=== PATIENT | female | born 1950 | race Caucasian/White ===

== ENCOUNTER → 2017-11-25 | Day surgery (SDC) | payer OTHER ==
[2017-11-14 10:07] LABS: BASO % 1.2 %; BASO ABS # 0.04 K/uL (0-0.2); EOS % 2.4 %; EOS ABS # 0.08 K/uL (0-0.5); HEMATOCRIT 37.6 % (37-47); HEMOGLOBIN 12.4 g/dL (12.0-16.0); LYMPH ABS # 1.42 K/uL (1.2-3.4); MEAN CELL VOLUME 89.7 fL (80-100); MEAN CORPUSCULAR HEMOGLOBIN 29.6 pg (25-34); MEAN PLATELET VOLUME 9.7 fL (7.4-10.4); MONO % 10.4 %; MONO ABS # 0.35 K/uL (0.11-0.59); NEUT ABS # 1.49 K/uL (1.4-6.5); PLATELET COUNT 299 K/uL (130-400); RED CELL DISTRIBUTION WIDTH CV 13.1 % (11.5-14.5); WHITE BLOOD COUNT 3.38 K/uL (4.8-10.8)
[2017-11-14 10:19] LABS: PTT PATIENT 26.5 SECONDS (21.0-31.0)
[2017-11-14 10:34] LABS: BLOOD UREA NITROGEN 15 mg/dl (7-18); CALCIUM 8.9 mg/dl (8.5-10.1); CARBON DIOXIDE 27 mmol/L (21-32); CREATININE 0.71 mg/dl (0.60-1.20); GLUCOSE 98 mg/dl (70-99); POTASSIUM 3.7 mmol/L (3.5-5.1); SODIUM 140 mmol/L (136-145)
[~2017-11-25] VITALS: Ht 149.9 cm; Wt 75.0 kg
[~2017-11-25] MED LIST: ACETAMINOPHEN 325 MG TAB PO PRN; ASPEC325 PO; ATROPINE SULFATE 0.1 MG/ML 5ML SYR IV PRN; CLC100 PO; CLINDAMYCIN PHOS 150 MG/ML 2 ML VIAL IV SCH; CLORAZEPATE PO; EFFSR75 PO; ERYTHROMYCIN OP OINT 5 MG/GM 3.5 GM TUBE ONE; EpHEDrine SULFATE INJ 50 MG/ML AMP IV PRN; FENTANYL CITRATE INJ 50 MCG/1 ML 2 ML VIAL IV PRN; FENTANYL CITRATE INJ 50 MCG/1 ML 2 ML VIAL ONE; GENTIAN VIOLET TOP SOLN DROP CHARGE ONE; LACTATED RINGER'S 1000ML 1,000 ML IV SCH; LIDOCAINE HCL 2% 2 ML VIAL (20MG/ML) ONE; LIDOCAINE/EPINEPHRINE 1% 20 ML VIAL ONE; LSN/10125 PO; METOCLOPRAMIDE HCL INJ 5 MG/ML 2 ML VIAL IV PRN; MIDAZOLAM HCL 1 MG/ML 2ML VIAL ONE; MIRT15TA2 PO; MULT-580 PO; OMEP20CA9 PO; ONDANSETRON INJ 2 MG/ML 2 ML VIAL IV PRN; OXYC-57 PO; OXYCODONE/ACETAMINOPHEN 5-325 TAB PO PRN; OXYSR10 PO; PHENYLEPHRINE 100MCG/ML 5ML SYR IV PRN; POTA-639 PO; POVIDONE-IODINE OP SOLN 30 ML BTL ONE; PROMETHAZINE HCL INJ 12.5 MG in SODIUM CHLORIDE 0.9% 50ML 50 ML IV PRN; PROPOFOL IV EMULSION 10 MG/ML 20 ML VIAL ONE; ROSU5TAB PO; SODIUM CHLORIDE 0.9% 1000ML 1,000 ML IV SCH; VANCOMYCIN CONSULT ACTIVE PRN; VANCOMYCIN HCL 1000MG/20ML VIAL ONE; VANCOMYCIN IV 500 MG in SODIUM CHLORIDE 0.9% 250ML 250 ML IV STA; WATER, STERILE FOR INJ 10 ML VIAL ONE
[2017-11-25 07:38] VITALS: Ht 149.9 cm; Wt 75.0 kg
--- NOTE | 2017-11-25 08:11 | History & Physical Bridge - [place] ---
H&P Re-Evaluation Bridge Note: I have examined the patient, reviewed the History & Physical and in the interval since the performance of the History & Physical I have noted the following changes of clinical significance: No changes noted
--- NOTE | 2017-11-25 10:32 | [facility] Post Operative Brief Note ---
Immediate Operative Summary Operative Date November 25, 2017. Pre-Operative Diagnosis Bilateral Dermatochalasis, Involutional Ptsosis Acquired Post-Operative Diagnosis same as pre op Procedure(s) Performed Bilateral Upper Blepharoplasty And Bilateral Upper Eyelid Ptosis Repair Surgeon Dr Celine Morton Pattern Hand Surgeon(s) LUIS ALBERTO Healy Estimated Blood Loss trace Findings Consistent with Post-Op Diagnosis Specimens none Anesthesia Type MAC Disposition Disposition: Recovery Room / PACU
--- NOTE | 2017-11-25 10:42 | Discharge Instructions ---
Discharge Instructions Date of Service November 25, 2017. Admission Reason for Admission: Bilat Dermatochalasis, Involutional Ptosis, Acquir Discharge Discharge Diagnosis / Problem: dermatochalasis and ptosis Discharge Goals Goal(s): Decrease discomfort, Improve function Activity Recommendations Activity Limitations: as noted below ACTIVITY RECOMMENDATIONS: __Normal activities _x_No bending, lifting or straining __No driving __Driving allowed when you are off pain medications _x_Walking permitted __You should have help at home for ___ days DRESSINGS: _x_No dressings required __Keep dressings dry/in place until first office visit __Remove dressings ___ and leave dressings off __Apply ice ___ days __Remove dressings and reapply garment _x_Apply antibiotic ointment to wounds 3-4 times/day until tube is finished BATHING: __Keep dressings dry _x_Sponge bathing permitted __Showering permitted _x_No swimming, hot tubs or soaking in a tub MEDICATIONS: Resume previous medications unless instructed otherwise by your surgeon. _x_Do not use aspirin, Motrin, Advil or Ibuprofen as these may promote bleeding. Please use Tylenol. _x_Prescription(s) provided: pain medication and antibiotic ointment provided at your last office visit OTHER INSTRUCTIONS: __Record drain output 2-3 times per day SPECIAL CARE INSTRUCTIONS: * It is normal to have a mild fever after surgery. If your temperature is higher than 101.5 degrees F, please call the office at [phone]. * Constipation is a typical side effect of pain medication. An over-the- counter stool softener will help relieve this. * Leaking around surgical drains may occur and should not cause concern. Sometimes these drains become clogged. If this happens, remove the bulb and milk the clot out of the tube, then replace the bulb. * Drainage from wounds after liposuction is normal and should be expected. Garments will become soiled. You should protect furniture and bedding. This drainage should mostly subside within 2-3 days. Leave garments in place unless instructed to remove them. * If you have unusual drainage from a wound or are concerned you have an infection or have any questions or concerns, please call the office at [phone]. FOLLOW UP VISIT: If not already scheduled, please call the office, , when you return home after surgery to schedule an appointment to be seen in __2_ days. . Current Hospital Diet Patient's current hospital diet: Discharge Diet Recommended Diet: Regular Diet Procedures Procedures Performed: Bilateral Upper Blepharoplasty And Bilateral Upper Eyelid Ptosis Repair Pending Studies Studies pending at discharge: no Medical Emergencies . Who to Call and When: Medical Emergencies: If at any time you feel your situation is an emergency, please call 911 immediately. . Non-Emergent Contact Non-Emergency issues call your: Primary Care Provider, Surgeon . "Provider Documentation" section prepared by Vandana Garcia. . [place] Drug Monitoring Program Search Results: no issues identified
--- NOTE | 2017-11-25 12:19 | Anesthesia Progress Nt - [facility] ---
Anesthesia Post Op Note Date & Time November 25, 2017 at 12:19 Vital Signs Pain Intensity: 2 Vital Signs Past 12 Hours Date Time Temp Pulse Resp B/P (MAP) Pulse Ox O2 Delivery O2 Flow Rate FiO2 11/25/17 12:05 60 14 164/90 (114) 96 Room Air 11/25/17 11:35 64 14 168/80 (109) 95 Room Air 11/25/17 11:05 62 14 167/89 (115) 95 Room Air 11/25/17 10:35 36.3 73 16 128/68 (88) 96 Room Air 11/25/17 07:38 36.6 70 16 163/91 (115) 98 Room Air Notes Mental Status: alert / awake / arousable, participated in evaluation Pt Amnestic to Procedure: Yes Nausea / Vomiting: adequately controlled Pain: adequately controlled Airway Patency, RR, SpO2: stable & adequate BP & HR: stable & adequate Hydration State: stable & adequate Anesthetic Complications: no major complications apparent
[2017-11-25 12:34] VITALS: BP 169/78; PULSE 60; O2SAT 95
--- NOTE | 2017-11-26 15:57 | OPERATIVE REPORT ---
DATE OF OPERATION: 11/25/2017 PREOPERATIVE DIAGNOSIS: Bilateral upper eyelid dermatochalasis and eyelid ptosis. POSTOPERATIVE DIAGNOSIS: Bilateral upper eyelid dermatochalasis and eyelid ptosis. PROCEDURE: Bilateral upper eyelid ptosis repair via levator plication. SURGEON: Celine Morton MD. HOME RESTORATION SERVICE SUPERVISOR: Vandana Garcia PA-C. ANESTHESIA: General. COMPLICATIONS: None. INDICATION FOR THE PROCEDURE: The patient is a 67-year-old female referred to [facility] with bilateral upper eyelid ptosis and failed visual field testing with dermatochalasis, which was impacting activities of daily living. We discussed options for repair, and I recommended bilateral upper eyelid ptosis repair via an external approach to allow for skin resection and levator plication. BRIEF DESCRIPTION OF THE PROCEDURE: The risks, benefits, and alternatives of the procedure were explained to the patient who agreed and signed consent. She was identified and marked in the preoperative holding area. She was brought to the operating room where she was positioned supine and placed under sedation without incident. Surgical site was prepped and draped sterilely. A timeout procedure was performed. Surgical site markings were applied. I marked the supratarsal crease 8 mm above ciliary margin in the mid pupillary line. The incision was extended laterally into the lateral etienne area medially taking care not to cross the medial punctum. Excess skin of the upper lid was marked for excision. The superior incision was marked 1 cm inferior to the eyebrow. Similar markings were applied on the right side. Lidocaine 1% with epinephrine was used to anesthetize the planned incisions of both lids. I began repair on the left side. A 15 blade scalpel was used to make the incision and remove excess skin from underlying orbicularis muscle using electrocautery. Hemostasis was achieved with electrocautery. A strip of orbicularis muscle was then removed, and the orbital septum was identified. Septum was opened, and a small amount of fat was identified and removed using cautery. Septum was dissected away superiorly and inferiorly until the tarsal plate and vascular arcade were identified. Superiorly levator muscle was noted, and dissection was performed. 6-0 silk U suture was placed in the mid pupillary line to advance the levator muscle to the tarsal plate to plicate the levator aponeurosis. It was advanced about 6 mm. Similar procedure was undertaken on the right side. Initially, we discussed ptosis repair on the left only and blepharoplasty on the right; however, once the skin excision and orbicularis muscle resection was performed, temporary sutures were placed, and patient was placed in seated position. With this, it was noted that there was ptosis of the right upper lid. The patient was, therefore, further sedated and placed in supine position, and repair was performed in similar fashion. A total of 3 silk sutures placed to advance the levator muscle on each side. The wounds were reapproximated using 6-0 nylon interrupted sutures taking a bite of underlying orbicularis muscle. Following the procedure, the eyes were irrigated with BSS, and ophthalmic ointment was placed. The patient was once again placed in seated position and noted to have good levator function with improvement of the ptosis and excess skin. The procedure was tolerated well. The patient was awakened and transferred to recovery room in satisfactory condition. I attest to the content of the Intraoperative Record and any orders documented therein. Any exception s are noted below.
== END | disposition home or self-care (01) ==
LOC: X.SURG 07:07
PROVIDERS: ATTEND Plastic Surgery
DX: H02.834 Dermatochalasis of left upper eyelid (principal); H02.831 Dermatochalasis of right upper eyelid; H02.403 Unspecified ptosis of bilateral eyelids; I10 Essential (primary) hypertension; Z79.899 Other long term (current) drug therapy; Z88.2 Allergy status to sulfonamides; Z88.8 Allergy status to other drugs, medicaments and biological substances; Z96.653 Presence of artificial knee joint, bilateral